=== PATIENT | male | born 1990 | race American Indian/Alaskan Native ===

== ENCOUNTER 2018-06-22 19:28 | Emergency (ER) | payer SELFPAY ==
[2018-06-22 19:46] VITALS: BP 122/68
--- NOTE | 2018-06-22 23:08 | XRay Report ---
FINAL REPORT EXAM: XR TOE(S) 2+V LT HISTORY: pain/swelling r/t injury TECHNIQUE: Three views left great toe Comparison: FINDINGS: There is a transverse fracture through the left great toe tuft. This finding appears to be extra-articular and a crush type injury. Limited bony detail on the oblique image. No other fractures are identified. There is radiopaque foreign body adjacent to the 5th tuft. IMPRESSION: Transverse extra-articular fracture of the left 1st digit tuft with associated soft tissue swelling. No radiopaque foreign body.
--- NOTE | 2018-06-23 00:57 | Emergency Department Report ---
ED Lower Extremity HPI - General Chief Complaint: Extremity Injury, Lower Stated Complaint: L FOOT PAIN Time Seen by Provider: 06/22/18 23:33 Source: patient Mode of arrival: Ambulatory Limitations: No Limitations - History of Present Illness Initial Comments: Patient's a 27-year-old -[place] male who presents status post left great toe while running across [place] today patient states pain swelling mild bleeding initially controlled with direct pressure pain 4/10 aching patient remains able toward baseline per patient MD Complaint: foot injury Onset/Timin -: days(s) Injury: Foot: Left Type of Injury: hyperextension Place: home Severity: moderate Severity scale (0 -10): 4 Improves With: NSAID Worsens With: weight bearing, movement, palpation Context: running Other Symptoms: loss of consciousness, SOB Associated Symptoms: swelling, tingling, ambulatory. denies: numbness - Related Data Previous Rx's Medication Instructions Recorded Last Taken Type Cephalexin [Keflex] 500 mg PO TID #30 capsule 06/23/18 Unknown Rx traMADol [Ultram] 50 mg PO Q6HR PRN #12 tablet 06/23/18 Unknown Rx Allergies Allergy/AdvReac Type Severity Reaction Status Date / Time No Known Allergies Allergy Unverified 06/22/18 19:46 ED Review of Systems ROS: Stated complaint: L FOOT PAIN Other details as noted in HPI Constitutional: denies: chills, fever Eyes: denies: eye pain, eye discharge, vision change ENT: denies: ear pain, throat pain Respiratory: denies: cough, shortness of breath, wheezing Cardiovascular: denies: chest pain, palpitations Endocrine: no symptoms reported Gastrointestinal: denies: abdominal pain, nausea, diarrhea Genitourinary: denies: urgency, dysuria Musculoskeletal: joint swelling, myalgia Skin: denies: rash, lesions Neurological: denies: headache, weakness, paresthesias Psychiatric: denies: anxiety, depression Hematological/Lymphatic: denies: easy bleeding, easy bruising ED Past Medical Hx - Past Medical History Previous Medical History?: No - Surgical History Past Surgical History?: No - Social History Smoking Status: Never Smoker Substance Use Type: None - Medications Home Medications: Home Medications Medication Instructions Recorded Confirmed Last Taken Type Cephalexin [Keflex] 500 mg PO TID #30 capsule 06/23/18 Unknown Rx traMADol [Ultram] 50 mg PO Q6HR PRN #12 tablet 06/23/18 Unknown Rx ED Physical Exam - General Limitations: No Limitations General appearance: alert, in no apparent distress - Head Head exam: Present: atraumatic, normocephalic, normal inspection - Eye Eye exam: Present: normal appearance, PERRL, other Pupils: Present: normal accommodation - ENT ENT exam: Present: mucous membranes moist - Neck Neck exam: Present: normal inspection, full ROM. Absent: tenderness, lymphadenopathy, thyromegaly - Respiratory Respiratory exam: Present: normal lung sounds bilaterally. Absent: respiratory distress, wheezes, rhonchi, chest wall tenderness, decreased breath sounds - Cardiovascular Cardiovascular Exam: Present: regular rate, normal rhythm. Absent: systolic murmur, diastolic murmur, rubs, gallop - GI/Abdominal GI/Abdominal exam: Present: soft, normal bowel sounds. Absent: distended, tenderness, guarding, rebound, rigid, organomegaly, mass, bruit, pulsatile mass , hernia - Rectal Rectal exam: Present: deferred - Extremities Exam Extremities exam: Present: normal inspection, full ROM, tenderness, joint swelling, calf tenderness. Absent: pedal edema - Back Exam Back exam: Present: normal inspection, full ROM, tenderness, CVA tenderness (R) , CVA tenderness (L), muscle spasm - Neurological Exam Neurological exam: Present: alert, oriented X3, normal gait, reflexes normal. Absent: CN II-XII intact, motor sensory deficit - Expanded Neurological Exam Expanded Patient oriented to: Present: person, place, time Cerebellar function: Finger to Nose: Abnormal Right, Heel to [place]: Abnormal Right, Romberg: Abnormal Right Upper motor neuron: Desean Neglect: Normal, Pronator Drift: Normal, Babinski Sign : Normal, Sensory Extinction: Normal Sensory exam: Upper Extremity Light Touch: Normal, Upper Extremity Pin Prick: Normal, Upper Extremity Temperature: Normal, UE 2 Point Discrimination: Normal, Lower Extremity Light Touch: Normal, Lower Extremity Pin Prick: Normal, Lower Extremity Temperature: Normal, LE 2 Point Discrimination: Normal Motor strength exam: RUE: 5, LUE: 5, RLE: 5, LLE: 5 DTR: bicep (R): 2+, bicep (L): 2+, tricep (R): 2+, tricep (L): 2+, knee (L): 2+ Best Eye Response ([place]): (4) open spontaneously Best Motor Response ([place]): (6) obeys commands Best Verbal Response ([place]): (5) oriented [place] Total: 15 - Psychiatric Psychiatric exam: Present: normal affect, normal mood - Skin Skin exam: Present: warm, dry, intact, normal color. Absent: rash ED Course Vital Signs 06/22/18 06/22/18 19:26 19:44 Temperature 98.5 F 98.5 F Pulse Rate 84 98 H Respiratory 18 18 Rate Blood Pressure 122/68 122/68 O2 Sat by Pulse 97 99 Oximetry ED Lower Extremity MDM - Radiology Data Radiology results: report reviewed, image reviewed interpreted by me: Left great toe tuft fracture open no exposed bone or tendon or muscle involvement patient remains ambulatory to baseline - Medical Decision Making Patient with left great toe fracture open nondisplaced no deformity given wound care instructions Betadine dressing applied the same patient remains ambulatory advised plan DC the home prescription for Keflex Ultram when necessary patient will follow up with Dr. Kevin orthopedic surgery in 2-3 days return to ED if symptoms worsen patient verbalized agreement and understanding with same reduces her home in stable condition at this time Critical care attestation.: If time is entered above; I have spent that time in minutes in the direct care of this critically ill patient, excluding procedure time. ED Disposition Clinical Impression: Fall Qualifiers: Encounter type: initial encounter Qualified Code(s): W19.XXXA - Unspecified fall, initial encounter Toe fracture, left Qualifiers: Encounter type: initial encounter Toe: great toe Fracture type: open Phalanx: distal Fracture alignment: nondisplaced Qualified Code(s): S92.425B - Nondisplaced fracture of distal phalanx of left great toe, initial encounter for open fracture Disposition: DC-01 TO HOME OR SELFCARE Is pt being admited?: Yes Does the pt Need Aspirin: Yes Condition: Good Instructions: Toe Fracture (ED) Prescriptions: Cephalexin [Keflex] 500 mg PO TID #30 capsule traMADol [Ultram] 50 mg PO Q6HR PRN #12 tablet PRN Reason: Pain Referrals: CARMEN MARTIN MD [Primary Care Provider] - 3-5 Days GLORIA KEVIN MD [Staff Physician] - 3-5 Days Forms: Work/School Release Form(ED)
== END 2018-06-23 01:15 | disposition home or self-care (01) ==
LOC: ED 19:28
DX: S92.425A Nondisplaced fracture of distal phalanx of left great toe, initial encounter for closed fracture (principal); W19.XXXA Unspecified fall, initial encounter; Y93.02 Activity, running; Y92.098 Other place in other non-institutional residence as the place of occurrence of the external cause; Y99.8 Other external cause status
CPT/HCPCS: 99283